=== PATIENT | female | born 1945 | race Caucasian/White ===

== ENCOUNTER → 2019-12-22 | Outpatient (CLI) | payer MEDICARE, OTHER ==
[2019-12-22 16:50] LABS: Anion Gap 6 mmol/L (6-16); Blood Urea Nitrogen 30 mg/dL (8-24); Bun/Creatinine Ratio 39.4 (12.0-20.0); CO2, Blood 27 mmol/L (21-32); Calcium, Blood 8.9 mg/dL (8.5-10.1); Chloride, Blood 104 mmol/L (98-108); Creatinine, Blood 0.76 mg/dL (0.40-1.00); Glomerular Filtration Rate >60 (60-); Glucose, Blood 158 mg/dL (70-99); Potassium, Blood 4.5 mmol/L (3.5-5.5); Sodium, Blood 137 mmol/L (136-145)
== END | disposition home or self-care (01) ==
LOC: EDSTATUS 11:16 → LAB RH 15:11
PROVIDERS: Family Medicine
DX: I10 Essential (primary) hypertension (principal)
CPT/HCPCS: 80048

== ENCOUNTER → 2020-04-27 | Outpatient (CLI) | payer MEDICARE, OTHER ==
[2020-04-27 10:12] LABS: BASOPHILS ABSOLUTE AUTO 0.06 K/mm3 (0.00-0.23); BASOPHILS PERCENT AUTO 1 % (0-2); EOSINOPHILS ABSOLUTE AUTO 0.48 K/mm3 (0.00-0.68); EOSINOPHILS PERCENT AUTO 4 % (0-6); Hematocrit 38.3 % (33.0-51.0); Hemoglobin 11.8 g/dL (11.5-16.0); IMMATURE GRAN ABSOLUTE AUTO 0.03 K/mm3 (0.00-0.10); IMMATURE GRAN PERCENT AUTO 0 % (0-1); LYMPHOCYTES PERCENT AUTO 21 % (21-46); MONOCYTES ABSOLUTE AUTO 0.86 K/mm3 (0.16-1.47); MONOCYTES PERCENT AUTO 8 % (4-13); Mean Corpuscular HGB 28.4 pg (26.0-34.0); Mean Corpuscular HGB Conc 30.8 g/dL (31.5-36.5); Mean Corpuscular Volume 92 fL (80-100); Mean Platelet Volume 11.6 fL (9.1-12.4); NEUTROPHILS ABSOLUTE AUTO 7.63 K/mm3 (1.96-9.15); NEUTROPHILS PERCENT AUTO 67 % (41-73); Platelet Count 181 K/mm3 (150-400); RDW Coefficient Variation 13.9 % (11.7-14.2); RDW Standard Deviation 47.3 fL (35.1-46.3); Red Blood Cell Count 4.15 M/mm3 (3.80-5.20); White Blood Cell Count 11.46 K/mm3 (4.00-11.30)
[2020-04-27 10:48] LABS: Alanine Aminotransfer (ALT/SGP 15 U/L (12-78); Albumin, Blood 2.9 g/dL (3.4-5.0); Albumin/Globulin Ratio 0.8 (0.8-1.8); Alk Phos 107 U/L (50-136); Anion Gap 5 mmol/L (6-16); Aspartate Aminotrans (AST/SGOT 13 U/L (12-37); Bilirubin, Total 0.3 mg/dL (0.1-1.0); Blood Urea Nitrogen 42 mg/dL (8-24); Bun/Creatinine Ratio 35.9 (12.0-20.0); CHOL/HDL RATIO 2.1; CO2, Blood 29 mmol/L (21-32); Calcium, Blood 8.7 mg/dL (8.5-10.1); Chloride, Blood 108 mmol/L (98-108); Cholesterol 103 mg/dL (50-200); Creatinine, Blood 1.17 mg/dL (0.40-1.00); Globulin, Blood 3.8 g/dL (2.2-4.0); Glomerular Filtration Rate 48 (60-); Glucose, Blood 105 mg/dL (70-99); HDL Cholesterol 49 mg/dL (>39); LDL/HDL RATIO 0.8; Low Density Lipoprotein Chol 41 mg/dL (0-110); Potassium, Blood 4.3 mmol/L (3.5-5.5); Sodium, Blood 142 mmol/L (136-145); Total Protein, Blood 6.7 g/dL (6.4-8.2); Triglycerides 65 mg/dL (30-160); Very Low Density Lipoprot Chol 13 mg/dL (6-32)
== END | disposition home or self-care (01) ==
LOC: LAB RH 08:42 → EDSTATUS 14:39
PROVIDERS: Family Medicine
DX: M62.81 Muscle weakness (generalized) (principal); E78.5 Hyperlipidemia, unspecified
CPT/HCPCS: 80053; 80061; 83880; 84443; 85025

== ENCOUNTER → 2020-12-26 | Outpatient (CLI) | payer MEDICARE, OTHER ==
[2020-12-26 20:14] LABS: Hematocrit 46.1 % (33.0-51.0); Hemoglobin 13.9 g/dL (11.5-16.0); Mean Corpuscular HGB 26.7 pg (26.0-34.0); Mean Corpuscular HGB Conc 30.2 g/dL (31.5-36.5); Mean Corpuscular Volume 89 fL (80-100); Mean Platelet Volume 11.3 fL (9.1-12.4); Platelet Count 207 K/mm3 (150-400); RDW Coefficient Variation 15.1 % (11.7-14.2); White Blood Cell Count 8.83 K/mm3 (4.00-11.30)
[2020-12-26 20:25] LABS: Anion Gap 3 mmol/L (6-16); Blood Urea Nitrogen 16 mg/dL (8-24); Bun/Creatinine Ratio 25.2 (12.0-20.0); CO2, Blood 31 mmol/L (21-32); Calcium, Blood 8.7 mg/dL (8.5-10.1); Chloride, Blood 100 mmol/L (98-108); Creatinine, Blood 0.63 mg/dL (0.40-1.00); Glomerular Filtration Rate >60 (60-); Glucose, Blood 198 mg/dL (70-99); Potassium, Blood 3.9 mmol/L (3.5-5.5); Sodium, Blood 134 mmol/L (136-145)
== END ==
LOC: EDSTATUS 10:05 → LAB RH 19:01
PROVIDERS: Internal Medicine
DX: R68.89 Other general symptoms and signs (principal)
CPT/HCPCS: 80048; 85027

== ENCOUNTER 2021-03-12 12:49 | Inpatient (IN) | payer OTHER ==
[~2021-03-12] VITALS: Ht 160 cm; Wt 84.5 kg
[2021-03-12 13:19] LABS: BASOPHILS ABSOLUTE AUTO 0.01 K/mm3 (0.00-0.23); BASOPHILS PERCENT AUTO 0 % (0-2); EOSINOPHILS PERCENT AUTO 0 % (0-6); Hematocrit 50.4 % (33.0-51.0); Hemoglobin 15.8 g/dL (11.5-16.0); IMMATURE GRAN ABSOLUTE AUTO 0.03 K/mm3 (0.00-0.10); IMMATURE GRAN PERCENT AUTO 1 % (0-1); LYMPHOCYTES ABSOLUTE AUTO 0.48 K/mm3 (0.84-5.20); LYMPHOCYTES PERCENT AUTO 8 % (21-46); MONOCYTES ABSOLUTE AUTO 0.43 K/mm3 (0.16-1.47); MONOCYTES PERCENT AUTO 7 % (4-13); Mean Corpuscular HGB 26.6 pg (26.0-34.0); Mean Corpuscular HGB Conc 31.3 g/dL (31.5-36.5); Mean Corpuscular Volume 85 fL (80-100); Mean Platelet Volume 11.4 fL (9.1-12.4); NEUTROPHILS ABSOLUTE AUTO 5.22 K/mm3 (1.96-9.15); NEUTROPHILS PERCENT AUTO 85 % (41-73); Platelet Count 113 K/mm3 (150-400); RDW Coefficient Variation 16.9 % (11.7-14.2); RDW Standard Deviation 50.3 fL (35.1-46.3); Red Blood Cell Count 5.95 M/mm3 (3.80-5.20); White Blood Cell Count 6.17 K/mm3 (4.00-11.30)
[2021-03-12 13:39] LABS: Alanine Aminotransfer (ALT/SGP 58 U/L (12-78); Albumin, Blood 2.5 g/dL (3.4-5.0); Albumin/Globulin Ratio 0.5 (0.8-1.8); Alk Phos 130 U/L (50-136); Anion Gap 5 mmol/L (6-16); Aspartate Aminotrans (AST/SGOT 116 U/L (12-37); Bilirubin, Total 0.4 mg/dL (0.1-1.0); Blood Urea Nitrogen 54 mg/dL (8-24); Bun/Creatinine Ratio 59.9 (12.0-20.0); CO2, Blood 33 mmol/L (21-32); Calcium, Blood 8.9 mg/dL (8.5-10.1); Chloride, Blood 101 mmol/L (98-108); Globulin, Blood 4.6 g/dL (2.2-4.0); Glomerular Filtration Rate >60 (60-); Glucose, Blood 228 mg/dL (70-99); Potassium, Blood 4.2 mmol/L (3.5-5.5); Sodium, Blood 139 mmol/L (136-145); Total Protein, Blood 7.1 g/dL (6.4-8.2)
[2021-03-12 13:41] LABS: PCO2 Arterial 49.9 mmHg (35-45); pH Blood Arterial 7.45 (7.35-7.45)
--- NOTE | 2021-03-12 16:56 | NUR ---
Spoke with Dr Chung and discussed case. Pt to the ED for COVID-19 and is hypoxic and confused. Pt initialy reporting wanting everything done but due to her confusion Pt does not appear to understand her choices. Attempted to speak with Pt and currently significantly obtunded. Pt briefly opens her eyes with loud verbal stimuli but quickly closes them again. Pt does respond to this RN's questions. Received copy of Pt's POLST from [facility]. Pt's wishes are DNR with Limited Treatment. Pt does not want intubation based off POLST. Copy of POLST received is dark and unsure if it will scan into Pt's medical record well. Will place in Pt's paper chart. Spoke with Kris Byrne from ethics and discussed case. If Pt is in a confused or irrational state then it would be appropriate to follow Pt's wishes on POLST. Kris will place ethics note later today. Please review his note for further detail. Spoke with Dr Cabello and discussed case. Dr Cabello is requesting this RN to make a curtious visit to Pt's regarding plan to follow Pt's wishes on POLST. Pt's Brandt is also admitted tot [facility] for COVID 19 on medical floor. Spoke with Pt's who is A&OX2/3. It is difficult to asses how much understands. He appears lethargic and mumbles when he speaks. Provided update to Brandt and reviewed plan of care for his . Brandt states "I will pray for her". Brandt appears to be in agreement with following his 's wishes on POLST. Palliative Care will remain available.
[2021-03-12] MEDS ORDERED: CARV3.125 PO (17:18)
[2021-03-12] MEDS ORDERED: CITA20 PO (17:19)
[2021-03-12] MEDS ORDERED: FURO40 PO (17:20)
[2021-03-12] MEDS ORDERED: FAMO20 PO (17:20)
[2021-03-12] MEDS ORDERED: LEVFLO500 PO (17:20)
[2021-03-12] MEDS ORDERED: POTA10T PO (17:21)
[2021-03-12] MEDS ORDERED: TRAM50 PO (17:22)
[2021-03-12] MEDS ORDERED: ALBU90OI INH (17:22)
--- NOTE | 2021-03-12 18:34 | NUR ---
Ethics consult order received and processed. Case history and medical situation reviewed with ED and palliative care. Ambiguity expressed regarding course of treatment due to a conflict between what the principal communicated, and what her POLST form stipulates. Given her obtunded situation and lack of known testamentary capacity, I recommended defualting to her advance care planning instrument for clinical direction, and gently apprising her of the development. Thank you for this consult. Kris Byrne ThD
--- NOTE | 2021-03-13 00:30 | NUR ---
PT WAS ADMITTED TO [facility] FROM ER. PT IS COVID POSITIVE. PT IS ON BIPAP, FIO2 CONT 100%. CHANGED TO FULL FACEMASK DUE TO PRESSURE ON BRIDGE OF NOSE. ORAL CARE WAS PROVIDED, MOUTH IS VERY DRY. PT CO THIRST. INCONTINENT OF URINE, ATTENDS CHANGED. NO SKIN BREAKDOWN. PT ACCIDENTALLY PULLED IV L HAND. PT HAS ANXIETY W BIPAP, WAS MED EARLIER W ATIVAN W GOOD RESULT. CONT TO MONITOR.
[2021-03-13 03:49] LABS: BASOPHILS PERCENT AUTO 0 % (0-2); EOSINOPHILS PERCENT AUTO 0 % (0-6); Hematocrit 47.2 % (33.0-51.0); Hemoglobin 14.5 g/dL (11.5-16.0); IMMATURE GRAN ABSOLUTE AUTO 0.02 K/mm3 (0.00-0.10); IMMATURE GRAN PERCENT AUTO 1 % (0-1); LYMPHOCYTES ABSOLUTE AUTO 0.36 K/mm3 (0.84-5.20); LYMPHOCYTES PERCENT AUTO 8 % (21-46); MONOCYTES PERCENT AUTO 9 % (4-13); Mean Corpuscular HGB 26.6 pg (26.0-34.0); Mean Corpuscular HGB Conc 30.7 g/dL (31.5-36.5); Mean Corpuscular Volume 86 fL (80-100); Mean Platelet Volume 11.9 fL (9.1-12.4); NEUTROPHILS ABSOLUTE AUTO 3.53 K/mm3 (1.96-9.15); NEUTROPHILS PERCENT AUTO 82 % (41-73); Platelet Count 111 K/mm3 (150-400); RDW Coefficient Variation 16.3 % (11.7-14.2); RDW Standard Deviation 51.2 fL (35.1-46.3); Red Blood Cell Count 5.46 M/mm3 (3.80-5.20); White Blood Cell Count 4.31 K/mm3 (4.00-11.30)
[2021-03-13 04:08] LABS: Anion Gap 5 mmol/L (6-16); Blood Urea Nitrogen 47 mg/dL (8-24); Bun/Creatinine Ratio 55.6 (12.0-20.0); CO2, Blood 34 mmol/L (21-32); Calcium, Blood 8.8 mg/dL (8.5-10.1); Chloride, Blood 104 mmol/L (98-108); Creatinine, Blood 0.85 mg/dL (0.40-1.00); Glomerular Filtration Rate >60 (60-); Glucose, Blood 208 mg/dL (70-99); Potassium, Blood 3.8 mmol/L (3.5-5.5); Sodium, Blood 143 mmol/L (136-145)
--- NOTE | 2021-03-13 06:00 | NUR ---
GENERALLY NO CHANGE IN STATUS, CONT ON BIPAP W SAME SETTINGS, NOTED TO DESATURATE TO 69% FOR ORAL CARE, DOES RECOVER QUICKLY. NO OTHER CHANGES AT THIS TIME.
--- NOTE | 2021-03-13 09:04 | NUR ---
Case Conference Note Spoke with Primary RN Sarah, Dr Richards and discussed case. Pt requiring significant BIPAP support, condition is not improving, and currently Pt is obtunded. Care team feels comfort care should be considered. Spoke with Kris Byrne from Ethics. Kris will review chart and place ethics note. Palliative Care will remain available.
--- NOTE | 2021-03-13 10:02 | NUR ---
Ethics consultation update. The principal is reported to be suffering from a terminal condition, lacks stable mentation, and is unable to engage in meaningful communication. She has an advance care planning instrument (ACP) advocating for no-intubation, no chest compressions, no mechanically administered nutrition or hydration and support measures for comfort and pain relief only. Clarification requested pertaining to the appropriateness of inducing a hospice election on behalf of the principal, given her deteriorating condition and the fact that she is said to not be clinically benefiting from ongoing treatment. Under these circumstances, it is ethically and legally permissible, to transition the principal to comfort measures only, by two provider attestation. In agreement with ORS 127.635, subsection 3, and per hospital policy, two doctor confirmation must be submitted in writing, which asserts that the patient is in a terminal condition, and additional intervention is not likely to result in her substantive improvement. This action is respectful of her POLST, in alignment with her medical situation, and not contraindicated by family input. Thank you for this consult. Kris Byrne ThD
--- NOTE | 2021-03-13 15:16 | NUR ---
Comfort Care Visit This RN is acompanied by PC RN (Ethics Hand Leather Trimmer) Tamar Correia to Pt's 's room to discuss Pt's condition. Engaged in therapeutic conversation and plan to move forward with comfort care. Brandt appears to understand and is in agreement with plan. Spoke with Dr Cabello and discussed case. Placed comfort care order, comfort care order set, and D/C maintenance medications per V/O from Dr Cabello. Pt medicated with comfort medications and BIPAP D/C by primary RN Sarah. Pt appears imminent but appears comfortable with no S/S of distress at this time. Palliative Care will remain available for symptom management.
--- NOTE | 2021-03-13 18:07 | NUR ---
SHIFT SUMMARY TRANSITIONED TO COMFORT CARE TODAY. REPONSIVE TO PAINFUL STIMULI ONLY. MEDICATED PER COMFORT CARE ORDERS FOR COMFORT. BIPAP REMOVED. SLOW SHALLOW BREATHING AT THIS TIME. WILL CONTINUE COMFORT ORDERS. REPORT WILL BE GIVEN TO ONCOMING ROUTER MACHINE OPERATOR.
--- NOTE | 2021-03-14 01:53 | NUR ---
PT PASSED AT 013. TIME OF 129. SAIMA - EVANGELINA NOTIFIED.
--- NOTE | 2021-03-14 02:45 | NUR ---
PROVIDED POST MORTEM CARE.
--- NOTE | 2021-03-14 03:33 | NUR ---
PT DISCHARGED TO [facility] MEMBER HERE. SAIMA HUTCHINSON COORDINATED PAPERWORK AND CONTACTING OF FAMILY.
== END 2021-03-14 03:00 | DRG 177 ==
LOC: ER 12:49 → ERHOLD 15:56 → PCU 19:50
PROVIDERS: Family Medicine; Student in an Organized Health Care Education/Training Program; ADMIT Internal Medicine
PROC: 5A09357 Assistance with Respiratory Ventilation, Less than 24 Consecutive Hours, Continuous Positive Airway Pressure (ICD-10-PCS; principal; 2021-03-12)
PROC: 8E0ZXY6 Isolation (ICD-10-PCS; 2021-03-12)
PROC: 3E0333Z Introduction of Anti-inflammatory into Peripheral Vein, Percutaneous Approach (ICD-10-PCS; 2021-03-12)
PROC: XW033E5 Introduction of Remdesivir Anti-infective into Peripheral Vein, Percutaneous Approach, New Technology Group 5 (ICD-10-PCS; 2021-03-12)
DX: U07.1 COVID-19 (principal); J12.82 Pneumonia due to coronavirus disease 2019; J96.01 Acute respiratory failure with hypoxia; J44.0 Chronic obstructive pulmonary disease with (acute) lower respiratory infection; Z66 Do not resuscitate; Z51.5 Encounter for palliative care; K21.9 Gastro-esophageal reflux disease without esophagitis; I10 Essential (primary) hypertension; E66.9 Obesity, unspecified; G80.9 Cerebral palsy, unspecified; Z68.35 Body mass index [BMI] 35.0-35.9, adult; R73.9 Hyperglycemia, unspecified; Z88.0 Allergy status to penicillin
CPT/HCPCS: 36415; 36600; 71045; 80048; 80053; 82803; 82947; 84484; 85025; 85379; 93005; 93010; 94660; 94762; 96374; 96375; 99285-25; A9270; J0456; J1100; J1630; J1650; J2060; J2270; J7050; J7120